=== PATIENT | female | born 1955 | race Caucasian/White ===

== ENCOUNTER 2016-06-30 08:16 | Emergency (ER) | payer BC ==
[~2016-06-30] VITALS: Ht 165.1 cm; Wt 104.5 kg
[~2016-06-30 08:16] MED LIST: NOHOMEMEDS; PHENERGAN-CODE120 ML PO; TESSALON PERLE100 MG PO
[2016-06-30 08:20] VITALS: BP 136/59
[2016-06-30] MEDS ORDERED: LISINOPRIL10 MG PO (10:05)
[2016-06-30] MEDS ORDERED: METFORMIN HCL500 M1 PO (10:05)
[2016-06-30] MEDS ORDERED: ULTRAM50 MG PO (10:10)
== END 2016-06-30 10:43 | disposition home or self-care (01) ==
LOC: EME 08:16
DX: S83.92XA Sprain of unspecified site of left knee, initial encounter (principal); W18.30XA Fall on same level, unspecified, initial encounter; Y93.01 Activity, walking, marching and hiking
CPT/HCPCS: 73564; 93971; 99281; 99283

== ENCOUNTER 2016-08-01 10:07 | Inpatient (IN) | payer BC ==
[~2016-08-01] VITALS: Ht 165.1 cm; Wt 103.5 kg
[~2016-08-01 10:07] MED LIST changes: +LISINOPRIL10 MG PO; +METFORMIN HCL500 M1 PO; +ULTRAM50 MG PO
[2016-08-01 12:57] LABS: BASOPHIL COUNT 0.1 K/uL (0-0.1); EOSINOPHIL COUNT 1.4 K/uL (0-0.3); HEMATOCRIT 39.5 % (36.0-46.0); IMMATURE GRANULOCYTE (%) 0.9 % (0.0-0.7); IMMATURE GRANULOCYTE COUNT 0.1 K/uL; INSTRUMENT ABS NEUTROPHIL CT 4.4 K/uL; LYMPHOCYTE COUNT 2.1 K/uL (1.0-2.8); MCH 26.5 PG (29.0-34.0); MCHC 30.6 G/DL (30.0-36.0); MCV 86.4 FL (83-99); MEAN PLAT.VOLUME 10.3 uM^3 (9.5-12.4); MONOCYTE (%) 7.8 % (3-12); MONOCYTE COUNT 0.7 K/uL (0-0.8); NEUTROPHIL (%) 50.7 % (45-76); NEUTROPHIL COUNT 4.4 K/uL (1.8-6.4); PLATELET COUNT 393 K/uL (156-360); RBC DIS.WIDTH-CV 13.5 % (11.8-14.6); RBC DIS.WIDTH-SD 42.5 % (39-53); RED BLOOD COUNT 4.57 M/uL (3.80-5.20); WHITE BLOOD COUNT 8.7 K/uL (4.1-10.2)
[2016-08-01 13:11] LABS: CHLORIDE 103 mEq/L (99-109); SODIUM 140 mEq/L (136-147)
[2016-08-01 13:13] LABS: GLUCOSE 127 mg/dL (70-99)
[2016-08-01 13:14] LABS: ANION GAP 14 MEQ/L (2-14); INTER. NORMALIZED RATIO 1.1; PROTHROMBIN TIME 11.6 (9.2-11.2); PTT 29.9 (25-32)
[2016-08-01 13:17] LABS: GFR ESTIMATE (CALCULATED) > 59 mL/min/
[2016-08-01 13:18] LABS: UREA NITROGEN (BUN) 12 mg/dL (9-23)
[2016-08-01 13:25] LABS: TROP-I INTERPRETATION NEGATIVE; TROPONIN-I < 0.01 ng/mL (0.0-0.30)
[2016-08-01] MEDS ORDERED: VALIUM5 MG PO (13:36)
[2016-08-01] MEDS ORDERED: ZOFRAN ODT8 MG PO (13:36)
[2016-08-01] MEDS ORDERED: PERCOCET 5/31 TABLET PO (13:36)
[2016-08-01] MEDS ORDERED: PROAIR HFA8.5 GM IH (13:37)
[2016-08-01] MEDS ORDERED: TYLENOL EXTRA500 MG PO (13:39)
[2016-08-01 16:41] VITALS: BP 116/73
[2016-08-01 19:41] VITALS: BP 115/68
[2016-08-01 20:48] LABS: POINT-OF-CARE METER ID UU14162508
[2016-08-01 23:36] VITALS: BP 122/65
[2016-08-02 01:55] LABS: HEMATOCRIT 33.7 % (36.0-46.0); MCH 26.7 PG (29.0-34.0); MCHC 30.9 G/DL (30.0-36.0); MCV 86.6 FL (83-99); MEAN PLAT.VOLUME 10.1 uM^3 (9.5-12.4); PLATELET COUNT 352 K/uL (156-360); RBC DIS.WIDTH-CV 13.7 % (11.8-14.6); RBC DIS.WIDTH-SD 43.3 % (39-53); RED BLOOD COUNT 3.89 M/uL (3.80-5.20); WHITE BLOOD COUNT 6.5 K/uL (4.1-10.2)
[2016-08-02 03:38] VITALS: BP 137/67
[2016-08-02 06:34] LABS: POINT-OF-CARE METER ID UU14162508
[2016-08-02 07:23] VITALS: BP 137/67
[2016-08-02 09:32] LABS: ANION GAP 10 MEQ/L (2-14); CHLORIDE 102 MEQ/L (99-109); POTASSIUM 4.8 MEQ/L (3.7-5.4); SAMPLE HEMOLYSIS CHECK 0; SAMPLE ICTERIC CHECK 0; SAMPLE LIPEMIA CHECK 0; SODIUM 138 MEQ/L (136-147)
[2016-08-02 09:37] LABS: GFR ESTIMATE (CALCULATED) > 59 mL/min/; GLUCOSE 151 mg/dL (70-99); UREA NITROGEN (BUN) 12 mg/dL (9-23)
[2016-08-02 12:12] VITALS: BP 160/79
[2016-08-02 15:18] VITALS: BP 146/67
[2016-08-02 23:56] VITALS: BP 149/70
[2016-08-03 03:16] LABS: BASOPHIL COUNT 0.1 K/uL (0-0.1); EOSINOPHIL (%) 13.8 % (0-5); HEMATOCRIT 36.4 % (36.0-46.0); IMMATURE GRANULOCYTE (%) 1.4 % (0.0-0.7); IMMATURE GRANULOCYTE COUNT 0.1 K/uL; INSTRUMENT ABS NEUTROPHIL CT 3.7 K/uL; LYMPHOCYTE COUNT 1.8 K/uL (1.0-2.8); MCH 26.5 PG (29.0-34.0); MCHC 30.8 G/DL (30.0-36.0); MCV 86.3 FL (83-99); MEAN PLAT.VOLUME 10.2 uM^3 (9.5-12.4); MONOCYTE (%) 8.9 % (3-12); MONOCYTE COUNT 0.7 K/uL (0-0.8); NEUTROPHIL (%) 50.2 % (45-76); NEUTROPHIL COUNT 3.7 K/uL (1.8-6.4); PLATELET COUNT 381 K/uL (156-360); RBC DIS.WIDTH-CV 13.6 % (11.8-14.6); RBC DIS.WIDTH-SD 43.1 % (39-53); RED BLOOD COUNT 4.22 M/uL (3.80-5.20); WHITE BLOOD COUNT 7.4 K/uL (4.1-10.2)
[2016-08-03 03:36] LABS: CHLORIDE 107 mEq/L (99-109); POTASSIUM 4.9 mEq/L (3.7-5.4); SODIUM 141 mEq/L (136-147)
[2016-08-03 03:39] LABS: ANION GAP 9 MEQ/L (2-14)
[2016-08-03 03:42] LABS: GFR ESTIMATE (CALCULATED) > 59 mL/min/
[2016-08-03 03:53] LABS: GLUCOSE 121 mg/dL (70-99)
[2016-08-03 03:58] LABS: UREA NITROGEN (BUN) 11 mg/dL (9-23)
[2016-08-03 07:04] LABS: INTERNAL CONTROL VALID? YES
[2016-08-03 08:00] VITALS: BP 164/82
[2016-08-03 11:09] VITALS: BP 145/72
[2016-08-03 11:31] LABS: POINT-OF-CARE METER ID UU14162508
[2016-08-03] MEDS ORDERED: LOVENOX100 MG/1 M SC (14:29)
[2016-08-03 15:57] LABS: POINT-OF-CARE METER ID UU14162508
[2016-08-03 16:00] VITALS: BP 132/62
[2016-08-03 23:24] VITALS: BP 150/71
[2016-08-04 06:54] LABS: POINT-OF-CARE METER ID UU14162508
[2016-08-04 07:08] LABS: BASOPHIL COUNT 0.1 K/uL (0-0.1); EOSINOPHIL (%) 11.5 % (0-5); EOSINOPHIL COUNT 0.7 K/uL (0-0.3); HEMATOCRIT 33.7 % (36.0-46.0); IMMATURE GRANULOCYTE (%) 1.6 % (0.0-0.7); IMMATURE GRANULOCYTE COUNT 0.1 K/uL; INSTRUMENT ABS NEUTROPHIL CT 3.5 K/uL; LYMPHOCYTE COUNT 1.4 K/uL (1.0-2.8); MCH 26.6 PG (29.0-34.0); MCHC 30.6 G/DL (30.0-36.0); MCV 87.1 FL (83-99); MEAN PLAT.VOLUME 10.3 uM^3 (9.5-12.4); MONOCYTE (%) 8.6 % (3-12); MONOCYTE COUNT 0.5 K/uL (0-0.8); NEUTROPHIL COUNT 3.5 K/uL (1.8-6.4); PLATELET COUNT 338 K/uL (156-360); RBC DIS.WIDTH-SD 44.4 % (39-53); RED BLOOD COUNT 3.87 M/uL (3.80-5.20); WHITE BLOOD COUNT 6.3 K/uL (4.1-10.2)
[2016-08-04 07:27] LABS: ANION GAP 10 MEQ/L (2-14); CHLORIDE 105 MEQ/L (99-109); GFR ESTIMATE (CALCULATED) > 59 mL/min/; GLUCOSE 122 mg/dL (70-99); POTASSIUM 4.3 MEQ/L (3.7-5.4); SAMPLE HEMOLYSIS CHECK 0; SAMPLE ICTERIC CHECK 0; SAMPLE LIPEMIA CHECK 0; SODIUM 139 MEQ/L (136-147); UREA NITROGEN (BUN) 13 mg/dL (9-23)
[2016-08-04 09:00] VITALS: BP 158/81
[2016-08-04] MEDS ORDERED: LISINOPRIL20 MG PO (13:42)
[2016-08-04] MEDS ORDERED: DOXYCYCLINE HY100 M3 PO (13:46)
[2016-08-04] MEDS ORDERED: CIPROFLOXACIN500 M1 PO (13:47)
[2016-08-04] MEDS ORDERED: ELIQUIS5 MG PO (13:48)
[2016-08-06 15:04] LABS: Protein S, Free 142 % normal (50-147)
[2016-08-06 17:34] LABS: PROTEIN C FUNCTIONAL ACTIVITY+ >200 % (70-180)
[2016-08-09 11:15] LABS: ANTITHROMBIN III ACTIVITY+ 84 % activi (80-120)
== END 2016-08-04 16:53 | disposition home or self-care (01) | DRG 823 ==
LOC: EME 10:07 → EDOF 13:52 → 2EAST 15:08 → EDOF 15:08 → 2EAST 16:28
PROVIDERS: Emergency Medicine; Internal Medicine
PROC: 07B23ZX Excision of Left Neck Lymphatic, Percutaneous Approach, Diagnostic (ICD-10-PCS; principal; 2016-08-02)
DX: C77.0 Secondary and unspecified malignant neoplasm of lymph nodes of head, face and neck (principal); C64.2 Malignant neoplasm of left kidney, except renal pelvis; I82.622 Acute embolism and thrombosis of deep veins of left upper extremity; I26.99 Other pulmonary embolism without acute cor pulmonale; J18.9 Pneumonia, unspecified organism; I82.C12 Acute embolism and thrombosis of left internal jugular vein; J90 Pleural effusion, not elsewhere classified; J98.11 Atelectasis; N28.89 Other specified disorders of kidney and ureter; S83.92XA Sprain of unspecified site of left knee, initial encounter; I10 Essential (primary) hypertension; E11.9 Type 2 diabetes mellitus without complications; E66.9 Obesity, unspecified; F17.210 Nicotine dependence, cigarettes, uncomplicated; Z79.84 Long term (current) use of oral hypoglycemic drugs; Z88.0 Allergy status to penicillin; Z68.38 Body mass index [BMI] 38.0-38.9, adult
CPT/HCPCS: 70553; 71010; 71275; 74176; 76942; 80048; 80202; 81240 90; 81241 90; 82948; 83090 90; 84484; 85025; 85027; 85240 90; 85300 90; 85303 90; 85305 90; 85306 90; 85610; 85613 90; 85730; 85730 90; 86140; 86146 90; 86147 90; 87040; 87070; 87205; 87449; 88305; 88341 TC; 88342 TC; 93005; 93970; 93971; 99202; 99281; 99285; J1650; J1815; J3370; J7050; S0073

== ENCOUNTER 2016-09-23 19:18 | Emergency (ER) | payer OTHER ==
[~2016-09-23] VITALS: Ht 162.6 cm; Wt 102.7 kg
[~2016-09-23 19:18] MED LIST changes: +CIPROFLOXACIN500 M1 PO; +DOXYCYCLINE HY100 M3 PO; +ELIQUIS5 MG PO; +LISINOPRIL20 MG PO; +LOVENOX100 MG/1 M SC; +PERCOCET 5/31 TABLET PO; +PROAIR HFA8.5 GM IH; +TYLENOL EXTRA500 MG PO; +VALIUM5 MG PO; +ZOFRAN ODT8 MG PO
[2016-09-23 19:52] LABS: HEMATOCRIT 47.1 % (36.0-46.0); MCH 24.6 PG (29.0-34.0); MCHC 28.7 G/DL (30.0-36.0); MCV 85.9 FL (83-99); NRBC (%) 1.6 /100 WBC (0-0); RBC DIS.WIDTH-CV 18.3 % (11.8-14.6); RBC DIS.WIDTH-SD 54.5 % (39-53); WHITE BLOOD COUNT 21.6 K/uL (4.1-10.2)
[2016-09-23 19:53] LABS: RED BLOOD COUNT 5.48 M/uL (3.80-5.20)
[2016-09-23 20:01] LABS: POINT-OF-CARE METER ID UU14100415
[2016-09-23 20:03] LABS: CHLORIDE 102 mEq/L (99-109); SODIUM 140 mEq/L (136-147)
[2016-09-23 20:06] LABS: GLUCOSE 123 mg/dL (70-99)
[2016-09-23 20:07] LABS: ANION GAP 28 MEQ/L (2-14); TOTAL BILIRUBIN 1.3 mg/dL (0.0-1.0)
[2016-09-23 20:09] LABS: ALKALINE PHOSPHATASE 87 IU/L (3-129); GFR ESTIMATE (CALCULATED) 17 mL/min/
[2016-09-23 20:10] LABS: UREA NITROGEN (BUN) 30 mg/dL (9-23)
[2016-09-23 20:13] LABS: POTASSIUM 6.5 mEq/L (3.7-5.4)
[2016-09-23 20:20] LABS: BICARBONATE 6.5 mEq/L (22-26); CARBOXY HGB 2.5 % (0-5); METHEMOGLOBIN 0.9 % (0-1.5); PCO2 20 mm Hg (35-45); PO2 311 mm Hg (80-100); SITE RR; pH 7.12 (7.35-7.45)
[2016-09-23 20:21] LABS: COMMENTS - BLOOD GASES A+C+; DEVICE 980; FI02 100 %; MODE SPONT; PEEP 5 CM/H20; PRES. SUPPORT 10 CM/H2O; TOTAL RESP RATE 45 resp/min
[2016-09-23 20:24] LABS: D-DIMER ELISA > 4.00 mg/L FEU (< 0.57)
[2016-09-23 20:25] LABS: TROP-I INTERPRETATION POSITIVE; TROPONIN-I 2.14 ng/mL (0.0-0.30)
[2016-09-23 20:47] LABS: ANISOCYTOSIS 2+; BAND NEUTROPHILS 2.7 % (0-8.0); BURR CELLS 2+; EOSINOPHIL ABS CT 0; GIANT PLATELETS 1+; HEMATOLOGY COMMENT 1 SN; INSTRUMENT ABS NEUTROPHIL CT 17.9 K/uL; LYMPHOCYTES 2.8 % (15.0-45.0); MICROCYTOSIS 1+; MYELOCYTES 1.8 %; NUCLEATED RBC'S 2.7; POIKILOCYTOSIS 2+; POLYCHROMASIA 2+; SCHISTOCYTES 1+
[2016-09-23 20:49] LABS: PLATELET CLUMPS PRESENT - PLATELET C
[2016-09-23 20:53] LABS: PLATELET COUNT UNABLE TO REPORT K/uL (156-360)
[2016-09-23 21:15] VITALS: BP 00/00
== END 2016-09-24 04:10 ==
LOC: EME → EDBD 19:18 → EME 21:13
PROVIDERS: Emergency Medicine
DX: J96.90 Respiratory failure, unspecified, unspecified whether with hypoxia or hypercapnia (principal); I26.99 Other pulmonary embolism without acute cor pulmonale; E87.2 Acidosis; R09.02 Hypoxemia; I46.9 Cardiac arrest, cause unspecified; R79.89 Other specified abnormal findings of blood chemistry; I45.19 Other right bundle-branch block; E87.5 Hyperkalemia; Z86.711 Personal history of pulmonary embolism; E78.5 Hyperlipidemia, unspecified; I10 Essential (primary) hypertension; J44.9 Chronic obstructive pulmonary disease, unspecified; Z87.891 Personal history of nicotine dependence
CPT/HCPCS: 36600; 71010; 80053; 82803; 82948; 83605; 83880; 84484; 85025; 85379; 87040; 87077; 87186; 87801; 93005; 94002; 94644; 99281; 99285; J2930; J2997; J7040